=== PATIENT | male | born 1960 | race Caucasian/White ===

== ENCOUNTER 2020-02-20 13:07 | Observation (INO) ==
[2020-02-20] MEDS ORDERED: Aspirin 81 MG TAB.CHEW PO ONE (13:24)
[2020-02-20 13:57] LABS: Basophils % 0.4 %; Eosinophils # 0.3 K/mcL (0.0-0.6); Eosinophils % 3.6 %; Hematocrit 48.1 % (37.5-50.1); Hemoglobin 15.1 g/dL (12.9-16.9); Immature Granulocytes % 0.3 % (0-4); Lymphocytes # 2.4 K/mcL (0.6-4.6); Lymphocytes % 29.8 %; Mean Corpuscular HGB Conc 31.4 g/dL (31.6-35.5); Mean Corpuscular Hemoglobin 27.7 pg (28.0-33.3); Mean Corpuscular Volume 88.3 fL (83.0-100.0); Mean Platelet Volume 11.6 fL (9.4-12.4); Monocytes # 0.6 K/mcL (0.0-1.3); Monocytes % 7.8 %; Neutrophils # 4.6 K/mcL (1.6-8.9); Platelet Count 233 K/mcL (140-400); Red Blood Count 5.45 M/mcL (4.19-5.50); Red Cell Distribution Width 13.3 % (11.5-14.5); Segmented Neutrophils % 58.1 %
[2020-02-20] MEDS ORDERED: Lidocaine -MPF 2% 5 ML VIAL ONE (14:18)
[2020-02-20 14:20] LABS: Alanine Aminotransferase 39 Units/L (7-52); Albumin 4.5 g/dL (3.5-5.7); Albumin/Globulin Ratio 1.4 (1.1-2.2); Alkaline Phosphatase 64 Units/L (34-104); Aspartate Amino Transferase 27 Units/L (13-39); BUN/Creatinine Ratio 14 (6-26); Bilirubin,Direct 0.1 mg/dL (0.0-0.2); Bilirubin,Indirect 0.4 mg/dL (0.0-1.0); Bilirubin,Total 0.5 mg/dL (0.3-1.0); Blood Urea Nitrogen 13 mg/dL (6-20); Calcium 9.4 mg/dL (8.6-10.3); Carbon Dioxide 24 mEq/L (23-29); Chloride 105 mEq/L (98-107); Globulin 3.2 g/dL (2.4-3.5); Glucose 117 mg/dL (70-105); Lipase 30 Units/L (11-82); Osmolality,Calculated 285 (280-300); Potassium 4.2 mEq/L (3.5-5.1); Sodium 137 mEq/L (136-145); Total Protein 7.7 g/dL (6.4-8.9); Troponin I < 0.03 ng/mL (< 0.04); eGFR For African Americans > 60 (> 60); eGFR For Non-African Americans > 60 (> 60)
[2020-02-20] MEDS ORDERED: *HR* Midazolam HCl 2 MG/2 ML VIAL IVP ONE (14:23)
[2020-02-20] MEDS ORDERED: *HR* FentaNYL (PF) 100 MCG/2 ML VIAL IVP ONE (14:23)
[2020-02-20 15:39] LABS: Prothrombin Time 11.1 Seconds (9.4-12.1)
[2020-02-20 15:42] LABS: Activated Partial Thrombo Time 30.2 Seconds (26.0-36.0)
[2020-02-20] MEDS ORDERED: Isovue-370 500 ML BOTTLE IVP ONE (15:52)
[2020-02-20] MEDS ORDERED: Naloxone 0.4 MG/ML INJ IVP PRN (16:38)
[2020-02-20] MEDS ORDERED: *HR* HYDROcodone/Acet 5/325 mg TABLET PO PRN (16:38)
[2020-02-20] MEDS ORDERED: Acetaminophen 325 MG TABLET PO PRN (16:38)
[2020-02-20] MEDS: *HR* HYDROmorphone 2 MG TABLET PO PRN (17:10)
[2020-02-20] MEDS ORDERED: *HR* HYDROmorphone 2 MG TABLET PO ONE (19:30)
[2020-02-21] MEDS: *HR* HYDROmorphone 2 MG TABLET PO PRN ×2 (03:28→08:38)
[2020-02-21 03:38] LABS: Hematocrit 42.8 % (37.5-50.1); Mean Corpuscular HGB Conc 32.7 g/dL (31.6-35.5); Mean Corpuscular Hemoglobin 28.6 pg (28.0-33.3); Mean Corpuscular Volume 87.5 fL (83.0-100.0); Mean Platelet Volume 11.2 fL (9.4-12.4); Platelet Count 194 K/mcL (140-400); Red Blood Count 4.89 M/mcL (4.19-5.50); Red Cell Distribution Width 13.5 % (11.5-14.5); White Blood Count 8.6 K/mcL (4.3-11.1)
[2020-02-21 03:46] LABS: BUN/Creatinine Ratio 17 (6-26); Blood Urea Nitrogen 13 mg/dL (6-20); Calcium 9.1 mg/dL (8.6-10.3); Carbon Dioxide 27 mEq/L (23-29); Chloride 107 mEq/L (98-107); Glucose 102 mg/dL (70-105); Magnesium 2.1 mg/dL (1.6-2.6); Osmolality,Calculated 286 (280-300); Phosphorous 3.5 mg/dL (2.7-4.5); Potassium 4.1 mEq/L (3.5-5.1); Sodium 138 mEq/L (136-145); eGFR For African Americans > 60 (> 60); eGFR For Non-African Americans > 60 (> 60)
[2020-02-21] MEDS ORDERED: lisinopriL 20 MG TABLET PO SCH (09:00)
[2020-02-21 11:49] VITALS: BP 134/86
== END 2020-02-21 14:50 | disposition home or self-care (01) ==
LOC: EMEROOARM 13:07 → 2ANU 13:07 → SUATTDRO 15:51 → 2ANU 16:59
PROVIDERS: ADMIT Internal Medicine; ATTEND Student in an Organized Health Care Education/Training Program

== ENCOUNTER 2020-02-23 08:23 | Inpatient (IN) ==
[2020-02-23] MEDS ORDERED: *HR* HYDROmorphone (PF) 1 MG/ML SYRINGE IVP STA ×2 (08:53→15:45)
[2020-02-23 09:23] LABS: Basophils % 0.5 %; Eosinophils # 0.3 K/mcL (0.0-0.6); Eosinophils % 4.4 %; Hematocrit 45.4 % (37.5-50.1); Hemoglobin 14.5 g/dL (12.9-16.9); Immature Granulocytes % 0.5 % (0-4); Lymphocytes # 1.7 K/mcL (0.6-4.6); Lymphocytes % 26.8 %; Mean Corpuscular HGB Conc 31.9 g/dL (31.6-35.5); Mean Corpuscular Hemoglobin 27.7 pg (28.0-33.3); Mean Corpuscular Volume 86.6 fL (83.0-100.0); Mean Platelet Volume 11.4 fL (9.4-12.4); Monocytes # 0.5 K/mcL (0.0-1.3); Monocytes % 8.2 %; Neutrophils # 3.8 K/mcL (1.6-8.9); Platelet Count 208 K/mcL (140-400); Red Blood Count 5.24 M/mcL (4.19-5.50); Red Cell Distribution Width 13.2 % (11.5-14.5); Segmented Neutrophils % 59.6 %; White Blood Count 6.4 K/mcL (4.3-11.1)
[2020-02-23 09:45] LABS: BUN/Creatinine Ratio 19 (6-26); Blood Urea Nitrogen 15 mg/dL (6-20); Calcium 9.3 mg/dL (8.6-10.3); Carbon Dioxide 25 mEq/L (23-29); Chloride 105 mEq/L (98-107); Glucose 101 mg/dL (70-105); Osmolality,Calculated 283 (280-300); Sodium 136 mEq/L (136-145); Troponin I < 0.03 ng/mL (< 0.04); eGFR For African Americans > 60 (> 60); eGFR For Non-African Americans > 60 (> 60)
[2020-02-23] MEDS ORDERED: *HR* Ketamine 500 MG/5 ML MDV IVP ONE (11:56)
[2020-02-23] MEDS ORDERED: *HR* FentaNYL (PF) 100 MCG/2 ML VIAL IVP ONE ×2 (11:57→13:50)
[2020-02-23] MEDS ORDERED: Mag Hydrox/Al Hydrox/Simeth 30 ML UDC PO PRN (16:01)
[2020-02-23] MEDS ORDERED: Naloxone 0.4 MG/ML INJ IVP PRN (16:01)
[2020-02-23] MEDS ORDERED: *HR* OxyCODONE Immed Rel 5 MG TABLET PO PRN (16:01)
[2020-02-23] MEDS ORDERED: Ondansetron 4 MG/2 ML VIAL IVP PRN (16:01)
[2020-02-23] MEDS ORDERED: Acetaminophen 325 MG TABLET PO PRN (16:01)
[2020-02-23] MEDS ORDERED: MOM Conc 10 ML UD.LIQ PO PRN (16:01)
[2020-02-23] MEDS: *HR* HYDROcodone/Acet 5/325 mg TABLET PO PRN (16:55)
[2020-02-23 18:15] LABS: Adenovirus Not Detected (Not Detect); Bordetella Pertussis Not Detected (Not Detect); Chlamydophila pneumoniae Not Detected (Not Detect); Coronavirus 229E Not Detected (Not Detect); Coronavirus HKU1 Not Detected (Not Detect); Coronavirus NL63 Not Detected (Not Detect); Coronavirus OC43 Not Detected (Not Detect); Human Metapneumovirus Not Detected (Not Detect); Human Rhinovirus/Enterovirus Not Detected (Not Detect); Influenza A Subtype 2009 H1 Not Detected (Not Detect); Influenza B Not Detected (Not Detect); Mycoplasma pneumoniae Not Detected (Not Detect); Parainfluenza Virus 1 Not Detected (Not Detect); Parainfluenza Virus 2 Not Detected (Not Detect); Parainfluenza Virus 3 Not Detected (Not Detect); Parainfluenza Virus 4 Not Detected (Not Detect); Respiratory Syncytial Virus Not Detected (Not Detect); SARS-CoV-2 Not Detected (Not Detect)
[2020-02-24] MEDS: *HR* HYDROcodone/Acet 5/325 mg TABLET PO PRN ×3 (00:20→11:13)
[2020-02-24 05:17] LABS: Hematocrit 45.5 % (37.5-50.1); Hemoglobin 14.2 g/dL (12.9-16.9); Mean Corpuscular HGB Conc 31.2 g/dL (31.6-35.5); Mean Corpuscular Hemoglobin 27.6 pg (28.0-33.3); Mean Corpuscular Volume 88.5 fL (83.0-100.0); Mean Platelet Volume 11.4 fL (9.4-12.4); Platelet Count 216 K/mcL (140-400); Red Blood Count 5.14 M/mcL (4.19-5.50); Red Cell Distribution Width 13.4 % (11.5-14.5); White Blood Count 8.8 K/mcL (4.3-11.1)
[2020-02-24 05:30] LABS: BUN/Creatinine Ratio 23 (6-26); Blood Urea Nitrogen 17 mg/dL (6-20); Calcium 8.9 mg/dL (8.6-10.3); Carbon Dioxide 27 mEq/L (23-29); Chloride 103 mEq/L (98-107); Glucose 95 mg/dL (70-105); Magnesium 2.1 mg/dL (1.6-2.6); Osmolality,Calculated 283 (280-300); Potassium 3.9 mEq/L (3.5-5.1); Sodium 136 mEq/L (136-145); eGFR For African Americans > 60 (> 60); eGFR For Non-African Americans > 60 (> 60)
[2020-02-24] MEDS ORDERED: ceFAZolin 2,000 MG in Water for inj. (sterile) 20 ML IVP ONE (06:55)
[2020-02-24] MEDS ORDERED: Famotidine 20 MG/2 ML VIAL ONE (08:25)
[2020-02-24] MEDS ORDERED: Acetaminophen IV 1,000 MG/100 ML INFUS..BTL ONE (08:25)
[2020-02-24] MEDS ORDERED: Ondansetron 4 MG/2 ML VIAL IVP PRN ×2 (08:40→11:36)
[2020-02-24] MEDS ORDERED: *HR* HYDROmorphone PF 0.5 MG/0.5 ML SYRINGE IVP PRN (08:40)
[2020-02-24] MEDS ORDERED: lisinopriL 20 MG TABLET PO SCH (09:00)
[2020-02-24] MEDS ORDERED: SODIUM CHLORIDE IVPB ONE (09:00)
[2020-02-24] MEDS ORDERED: DOXYCYCLINE IVPB ONE (09:00)
[2020-02-24] MEDS ORDERED: CATH TIP IVPB ONE (09:00)
[2020-02-24] MEDS ORDERED: *HR* FentaNYL (PF) 100 MCG/2 ML VIAL ONE (09:07)
[2020-02-24] MEDS ORDERED: *HR* Propofol 200 MG/20 ML VIAL IVP ONE ×2 (09:08→09:10)
[2020-02-24] MEDS ORDERED: *HR* Midazolam HCl 2 MG/2 ML VIAL ONE (09:08)
[2020-02-24] MEDS ORDERED: *HR* Rocuronium Bromide 50 MG/5 ML VIAL ONE (09:09)
[2020-02-24] MEDS ORDERED: Lidocaine -MPF 2% 2 ML VIAL ONE (09:09)
[2020-02-24] MEDS ORDERED: *HR* Succinylcholine 200 MG/10 ML VIAL IVP ONE (09:09)
[2020-02-24] MEDS ORDERED: Dexamethasone 4 MG/ML VIAL ONE (09:09)
[2020-02-24] MEDS ORDERED: Ondansetron 4 MG/2 ML VIAL ONE (09:09)
[2020-02-24] MEDS ORDERED: CEFAZOLIN IVP ONE (10:10)
[2020-02-24] MEDS ORDERED: WATER FOR INJ IVP ONE (10:10)
[2020-02-24] MEDS ORDERED: *HR* HYDROMORPHONE 2 MG/ML VIAL ONE (10:37)
[2020-02-24] MEDS ORDERED: MOM Conc 10 ML UD.LIQ PO PRN (11:36)
[2020-02-24] MEDS ORDERED: Acetaminophen 325 MG TABLET PO PRN (11:36)
[2020-02-24] MEDS ORDERED: Naloxone 0.4 MG/ML INJ IVP PRN (11:36)
[2020-02-24] MEDS ORDERED: Mag Hydrox/Al Hydrox/Simeth 30 ML UDC PO PRN (11:36)
[2020-02-24] MEDS: *HR* OxyCODONE Immed Rel 5 MG TABLET PO PRN ×2 (12:55→18:19)
[2020-02-24] MEDS: Gabapentin 300 MG CAPSULE PO SCH ×2 (15:18→20:29)
[2020-02-25] MEDS: *HR* OxyCODONE Immed Rel 5 MG TABLET PO PRN ×3 (00:15→12:08)
[2020-02-25 07:26] LABS: Hematocrit 46.3 % (37.5-50.1); Hemoglobin 14.6 g/dL (12.9-16.9); Mean Corpuscular HGB Conc 31.5 g/dL (31.6-35.5); Mean Corpuscular Hemoglobin 28.1 pg (28.0-33.3); Mean Platelet Volume 11.2 fL (9.4-12.4); Platelet Count 232 K/mcL (140-400); Red Cell Distribution Width 13.5 % (11.5-14.5); White Blood Count 11.1 K/mcL (4.3-11.1)
[2020-02-25] MEDS: lisinopriL 20 MG TABLET PO SCH (07:29)
[2020-02-25] MEDS: Gabapentin 300 MG CAPSULE PO SCH ×4 (07:29→20:43)
[2020-02-25 07:38] LABS: BUN/Creatinine Ratio 26 (6-26); Blood Urea Nitrogen 21 mg/dL (6-20); Calcium 9.1 mg/dL (8.6-10.3); Carbon Dioxide 26 mEq/L (23-29); Chloride 103 mEq/L (98-107); Glucose 104 mg/dL (70-105); Magnesium 2.1 mg/dL (1.6-2.6); Osmolality,Calculated 285 (280-300); Potassium 4.1 mEq/L (3.5-5.1); Sodium 136 mEq/L (136-145); eGFR For African Americans > 60 (> 60); eGFR For Non-African Americans > 60 (> 60)
[2020-02-25] MEDS ORDERED: Amiodarone Premix 150 MG/100 ML BAG IVPB ONE (17:33)
[2020-02-25] MEDS ORDERED: Amiodarone Premix 360 MG/200 ML BAG IVC ONE (17:37)
[2020-02-25 20:09] LABS: BUN/Creatinine Ratio 28 (6-26); Blood Urea Nitrogen 28 mg/dL (6-20); Calcium 8.8 mg/dL (8.6-10.3); Carbon Dioxide 24 mEq/L (23-29); Chloride 104 mEq/L (98-107); Glucose 115 mg/dL (70-105); Magnesium 2.2 mg/dL (1.6-2.6); Osmolality,Calculated 288 (280-300); Potassium 4.1 mEq/L (3.5-5.1); Sodium 136 mEq/L (136-145); eGFR For African Americans > 60 (> 60); eGFR For Non-African Americans > 60 (> 60)
[2020-02-26] MEDS: Amiodarone Premix 360 MG/200 ML BAG IVC SCH ×2 (00:44→15:08)
[2020-02-26] MEDS: *HR* OxyCODONE Immed Rel 5 MG TABLET PO PRN ×2 (00:44→06:50)
[2020-02-26] MEDS ORDERED: *HR* Metoprolol 5 MG/5 ML VIAL IVP SCH (08:35)
[2020-02-26] MEDS: lisinopriL 20 MG TABLET PO SCH (08:54)
[2020-02-26] MEDS: Gabapentin 300 MG CAPSULE PO SCH ×3 (08:54→19:40)
[2020-02-26] MEDS ORDERED: Amiodarone Premix 150 MG/100 ML BAG IVPB ONE (08:58)
[2020-02-27] MEDS: Amiodarone Premix 360 MG/200 ML BAG IVC SCH (02:41)
[2020-02-27] MEDS: lisinopriL 20 MG TABLET PO SCH (08:10)
[2020-02-27] MEDS: Gabapentin 300 MG CAPSULE PO SCH ×3 (08:10→21:35)
[2020-02-27] MEDS: *HR* Amiodarone 200 MG TABLET PO SCH (10:17)
[2020-02-27] MEDS: *HR* HYDROcodone/Acet 5/325 mg TABLET PO PRN (18:09)
[2020-02-28] MEDS: *HR* HYDROcodone/Acet 5/325 mg TABLET PO PRN (00:17)
[2020-02-28] MEDS: *HR* Amiodarone 200 MG TABLET PO SCH (08:28)
[2020-02-28] MEDS: Gabapentin 300 MG CAPSULE PO SCH (08:28)
[2020-02-28 10:59] LABS: Basophils % 0.4 %; Eosinophils # 0.4 K/mcL (0.0-0.6); Eosinophils % 3.5 %; Hematocrit 45.6 % (37.5-50.1); Hemoglobin 14.6 g/dL (12.9-16.9); Immature Granulocytes % 0.7 % (0-4); Lymphocytes # 1.9 K/mcL (0.6-4.6); Lymphocytes % 16.7 %; Mean Corpuscular Hemoglobin 28.6 pg (28.0-33.3); Mean Corpuscular Volume 89.4 fL (83.0-100.0); Mean Platelet Volume 10.9 fL (9.4-12.4); Monocytes % 8.3 %; Platelet Count 225 K/mcL (140-400); Red Cell Distribution Width 13.9 % (11.5-14.5); Segmented Neutrophils % 70.4 %; White Blood Count 11.4 K/mcL (4.3-11.1)
[2020-02-28 11:06] LABS: BUN/Creatinine Ratio 28 (6-26); Blood Urea Nitrogen 21 mg/dL (6-20); Calcium 9.1 mg/dL (8.6-10.3); Carbon Dioxide 25 mEq/L (23-29); Chloride 106 mEq/L (98-107); Glucose 103 mg/dL (70-105); Osmolality,Calculated 287 (280-300); Potassium 4.4 mEq/L (3.5-5.1); Sodium 137 mEq/L (136-145); eGFR For African Americans > 60 (> 60); eGFR For Non-African Americans > 60 (> 60)
[2020-02-28 11:38] VITALS: BP 135/102
== END 2020-02-28 14:20 | disposition home or self-care (01) | DRG 164 ==
LOC: EMEROOARM 08:23 → 2NNU 08:23 → SUATTDRO 16:30
PROVIDERS: ADMIT Internal Medicine; ATTEND Internal Medicine